=== PATIENT | female | born 1985 | race Caucasian/White ===

== ENCOUNTER 2016-04-06 12:20 | Emergency (ER) | payer OTHER ==
[2016-04-06] MEDS ORDERED: IBUPROFEN 600 MG TABLET PO ONE (12:37)
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
[2016-04-06] MEDS ORDERED: OXYCODONE-ACETAMINOPHEN 5-325 MG TABLET PO ONE (14:19)
[2016-04-06 15:28] VITALS: BP 138/86
== END 2016-04-06 15:31 | disposition home or self-care (01) ==
LOC: ER 12:20
PROC: 0SSDXZZ Reposition Left Knee Joint, External Approach (ICD-10-PCS; principal; 2016-04-06)
DX: S83.005A Unspecified dislocation of left patella, initial encounter (principal); V86.99XA Unspecified occupant of other special all-terrain or other off-road motor vehicle injured in nontraffic accident, initial encounter; Z98.51 Tubal ligation status
CPT/HCPCS: 99283; 73552; 73562; 27560; L1830

== ENCOUNTER 2016-04-06 16:28 | Emergency (ER) | payer OTHER ==
[2016-04-06] MEDS ORDERED: ONDANSETRON 4 MG TAB.RAPDIS PO ONE (17:43)
--- NOTE | 2016-04-06 18:27 | ER Document Report ---
[id number] 4d SYNCOPE Mode of Arrival: Wheelchair Information source: Patient, Relative Notes: 30-year-old female who was just discharged by myself for patellar dislocation presents after syncopal episodes 2. Patient noted that she took aspirin and then had sudden pain and after the pain she felt lightheaded dizzy became pale and passed out. Patient since passing out has no complaints denies any chest pain shortness breath difficult to breathing or any new calf pain or swelling. Patient notes that she passes out from pain multiple times in the past TRAVEL OUTSIDE OF THE [place] IN LAST 30 DAYS: No - HPI Onset: Just prior to arrival Onset/Duration: Sudden Quality of pain: Achy Severity: Mild Pain Level: 1 Associated symptoms: Nausea, Vomiting, Other Exacerbated by: Movement Relieved by: Denies Similar symptoms previously: Yes Recently seen / treated by doctor: Yes - Related Data Allergies/Adverse Reactions: No Known Allergies Allergy (Verified 04/06/16 12:34) Past Medical History - Social History Smoking Status: Never Smoker Cigarette use (# per day): No Chew tobacco use (# tins/day): No Smoking Education Provided: No Family History: Reviewed & Not Pertinent Patient has suicidal ideation: No Patient has homicidal ideation: No Renal/ Medical History: Denies: Hx Peritoneal Dialysis Past Surgical History: Reports: Hx Section - x2, Hx Tubal Ligation - Immunizations Hx Diphtheria, Pertussis, Tetanus Vaccination: Yes Review of Systems - Review of Systems Notes: REVIEW OF SYSTEMS: CONSTITUTIONAL : Denies fever, chills, or sweats. Denies recent illness. EENT: Denies eye, ear, throat, or mouth pain or symptoms. Denies nasal or sinus congestion or discharge. Denies throat, tongue, or mouth swelling or difficulty swallowing. CARDIOVASCULAR: Denies chest pain. Denies palpitations or racing or irregular heart beat. Denies ankle edema. RESPIRATORY: Denies cough, cold, or chest congestion. Denies shortness of breath, difficulty breathing, or wheezing. GASTROINTESTINAL: Denies abdominal pain or distention. Denies nausea, vomiting , or diarrhea. Denies blood in vomitus, stools, or per rectum. Denies black, tarry stools. Denies constipation. GENITOURINARY: Denies difficulty urinating, painful urination, burning, frequency, blood in urine, or discharge. FEMALE GENITOURINARY: Denies vaginal bleeding, heavy or abnormal periods, irregular periods. Denies vaginal discharge or odor. MUSCULOSKELETAL: Left leg pain SKIN: Denies rash, lesions or sores. HEMATOLOGIC : Denies easy bruising or bleeding. LYMPHATIC: Denies swollen, enlarged glands. NEUROLOGICAL: Syncope PSYCHIATRIC: Denies anxiety or stress. Denies depression, suicidal ideation, or homicidal ideation. ALL OTHER SYSTEMS REVIEWED AND NEGATIVE. Dictation was performed using [employer] voice recognition software PHYSICAL EXAMINATION: GENERAL: Well-appearing, well-nourished and in no acute distress. HEAD: Atraumatic, normocephalic. EYES: Pupils equal round and reactive to light, extraocular movements intact, conjunctiva are normal. ENT: Nares patent, oropharynx clear without exudates. Moist mucous membranes. NECK: Normal range of motion, supple without lymphadenopathy LUNGS: Breath sounds clear to auscultation bilaterally and equal. No wheezes rales or rhonchi. HEART: Regular rate and rhythm without murmurs ABDOMEN: Soft, nontender, nondistended abdomen. No guarding, no rebound. No masses appreciated. Female : deferred Musculoskeletal: Left leg in immobilizer and Paul wrap bandage, patellar production noted NEUROLOGICAL: Cranial nerves grossly intact. Normal speech, normal gait. Normal sensory, motor exams PSYCH: Normal mood, normal affect. SKIN: Warm, Dry, normal turgor, no rashes or lesions noted. Physical Exam - Vital signs Vitals: Temp Pulse Resp BP Pulse Ox 98.2 F 78 16 113/76 98 04/06/16 18:28 04/06/16 18:28 04/06/16 18:28 04/06/16 18:28 04/06/16 18:28 Course - Re-evaluation Re-evalutation: 04/06/16 18:24 Patient is stable at this time denies any concerns, I do believe her syncope was secondary to vomiting from pain. I will discharge home at this time, with family's reassurance that she returns immediately if there is any other concerns Family members a physician and will be watching the patient After performing a Medical Screening Examination, I estimate there is LOW risk for ACUTE CORONARY SYNDROME, RESPIRATORY FAILURE, SEPSIS OR MENINGITIS, thus I consider the discharge disposition reasonable. The patient and I have discussed the diagnosis and risks, and we agree with discharging home with close follow- up. We also discussed returning to the Emergency Department immediately if new or worsening symptoms occur. We have discussed the symptoms which are most concerning (e.g., changing or worsening pain, trouble swallowing or breathing, neck stiffness, fever) that necessitate immediate return. 04/06/16 23:42 - Vital Signs Vital signs: Temp Pulse Resp BP Pulse Ox 98.2 F 78 16 113/76 98 04/06/16 18:28 04/06/16 18:28 04/06/16 18:28 04/06/16 18:28 04/06/16 18:28 Discharge - Discharge Clinical Impression: Syncope and collapse Nausea and vomiting Qualifiers: Vomiting type: unspecified Vomiting Intractability: non-intractable Qualified Code(s): R11.2 - Nausea with vomiting, unspecified Patellar dislocation Qualifiers: Encounter type: initial encounter Laterality: left Qualified Code(s): S83.005A - Unspecified dislocation of left patella, initial encounter Condition: Stable Disposition: HOME, SELF-CARE Instructions: Syncopal Episode ([facility]) Prescriptions: Ondansetron HCl [Zofran] 8 mg PO Q8 #30 tablet Oxycodone HCl 5 mg PO Q6 #20 capsule
[2016-04-06 18:29] VITALS: BP 113/76
== END 2016-04-06 19:05 | disposition home or self-care (01) ==
LOC: ER 16:28
DX: S83.005A Unspecified dislocation of left patella, initial encounter (principal); R55 Syncope and collapse; R11.2 Nausea with vomiting, unspecified; V86.99XA Unspecified occupant of other special all-terrain or other off-road motor vehicle injured in nontraffic accident, initial encounter; Z98.51 Tubal ligation status
CPT/HCPCS: 99283

== ENCOUNTER 2016-04-25 10:41 | Day surgery (SDC) | payer OTHER ==
[2016-04-19 10:39] LABS: APPEARANCE,URINE SLIGHTLY-CLOUDY; BILIRUBIN,URINE NEGATIVE (NEGATIVE); GLUCOSE, URINE NEGATIVE (NEGATIVE); KETONES,URINE NEGATIVE (NEGATIVE); LEUKOCYTE ESTERASE,URINE TRACE (NEGATIVE); NITRITE,URINE NEGATIVE (NEGATIVE); PROTEIN,URINE NEGATIVE (NEGATIVE); URINE SPECIFIC GRAVITY 1.021; UROBILINOGEN,URINE NEGATIVE mg/dL (<2.0)
[2016-04-19 10:40] LABS: HEMATOCRIT 41.9 % (36.0-47.0); HEMOGLOBIN 13.8 g/dL (12.0-15.5); HGB HCT DIFFERENCE -0.5; MEAN CORPUSCULAR HGB CONC 32.9 g/dL (32.0-36.0); MEAN CORPUSCULAR VOLUME 79 fl (80-97); RED CELL DISTRIBUTION WIDTH 15.6 % (11.5-14.0); WHITE BLOOD COUNT 7.6 10^3/uL (4.0-10.5)
[2016-04-19 11:06] LABS: ANION GAP 13 (5-19); BLOOD UREA NITROGEN 14 mg/dL (7-20); CALCIUM 9.9 mg/dL (8.4-10.2); CARBON DIOXIDE 26 mmol/L (22-30); CHLORIDE 103 mmol/L (98-107); CREATININE RESULT 0.67 mg/dL (0.52-1.25); GLUCOSE 85 mg/dL (75-110); SODIUM 141.9 mmol/L (137-145)
[~2016-04-25 10:41] MED LIST: CEFAZOLIN 2 GM/D5W RTU 2 GM/50 ML RTUPB IV PRN; DEXAMETHASONE SOD PHOSPHATE INJ 4 MG/1 ML VIAL ONE; KETOROLAC TROMETHAMINE 60 MG/2 ML SDV ONE; LACTATED RINGERS 1000 ML IV PRN; LIDOCAINE 0.5% INJ-PF (5 MG/ML) 50 ML SDV SUBCUT PRN; LIDOCAINE 2% INJ-PF (20 MG/ML) 10 ML AMPUL ONE; METOCLOPRAMIDE HCL INJ/PF 10 MG/2 ML SDV ONE; ONDANSETRON HCL INJ/PF 4 MG/2 ML SDV ONE; SUCCINYLCHOLINE CHLORIDE INJ 200 MG/10 ML VIAL ONE
[2016-04-25] MEDS ORDERED: BUPIVACAINE HCL 0.5 % INJ/PF 30 ML SDV ONE (11:28)
[2016-04-25] MEDS ORDERED: EPINEPHRINE INJ/PF 1 MG/1 ML AMPULE ONE ×2 (11:28→12:23)
[2016-04-25] MEDS ORDERED: HYDROMORPHONE HCL INJ/PF 2 MG/ML AMPULE ONE ×2 (11:37→14:21)
[2016-04-25] MEDS ORDERED: PROPOFOL INJ 200 MG/20 ML VIAL IV ONE (11:37)
[2016-04-25] MEDS ORDERED: ACETAMINOPHEN 100 ML IV ONE (11:37)
[2016-04-25] MEDS ORDERED: MIDAZOLAM 2 MG/2 ML INJ ONE (11:37)
[2016-04-25 11:58] LABS: PROTHROMBIN TIME 12.7 SEC (11.4-15.4)
[2016-04-25] MEDS ORDERED: ONDANSETRON HCL INJ/PF 4 MG/2 ML SDV IV PRN (13:54)
[2016-04-25] MEDS ORDERED: OXYCODONE-ACETAMINOPHEN 5-325 MG TABLET PO PRN ×4 (13:54→16:37)
[2016-04-25] MEDS ORDERED: DIPHENHYDRAMINE HCL 50 MG/ML VIAL IV PRN (13:54)
[2016-04-25] MEDS ORDERED: MEPERIDINE HCL/PF INJ 25 MG/1 ML DISP.SYRIN IV PRN (13:54)
[2016-04-25] MEDS ORDERED: FENTANYL CITRATE INJ/PF 100 MCG/2 ML AMPUL IV PRN ×3 (13:54)
[2016-04-25] MEDS ORDERED: MORPHINE SULFATE 10 MG/ML INJ IV PRN (13:54)
[2016-04-25] MEDS ORDERED: PROMETHAZINE HCL INJ 25 MG/1 ML VIAL IV PRN ×2 (13:54)
[2016-04-25] MEDS ORDERED: FENTANYL CITRATE INJ/PF 100 MCG/2 ML AMPUL ONE (14:21)
[2016-04-25] MEDS ORDERED: DEXMEDETOMIDINE INJ 80 MCG/20 ML VIAL IV ONE (14:54)
--- NOTE | 2016-04-25 16:33 | Brief Operative Note ---
BRIEF OPERATIVE REPORT DATE OF SURGERY: 04/25/16 TIME OF SURGERY: 16:30 PREOPERATIVE DIAGNOSIS: Left patellar dislocation POSTOPERATIVE DIAGNOSIS: Left patellar dislocation with anterior cruciate ligament tear and lateral meniscus tear SURGEON: LONDON PHAM FINDINGS: As above COMPLICATIONS: None ESTIMATED BLOOD LOSS: 25 mL TISSUE REMOVED OR ALTERED: None TECHNICAL PROCEDURE: Left knee arthroscopy with partial lateral meniscectomy and medial patellofemoral ligament reconstruction utilizing gracilis allograft
--- NOTE | 2016-04-25 16:37 | PDOC DISCHARGE SUMMARY ---
Discharge Summary (SDC) - Discharge Final Diagnosis: Status post left knee arthroscopy with partial lateral meniscectomy and medial patellofemoral ligament reconstruction Date of Surgery: 04/25/16 Discharge Date: 04/25/16 Treatment or Instructions: Patient instructed to follow up in 10-14 days. Patient instructed to keep dressing dry clean and intact for 4 days and then allowed to remove. At that point patient can shower and apply Band-Aids as needed. Patient can weight-bear as tolerated and use brace locked at 0 Crutches for support and safety. Patient instructed to call the office if patient develops fevers chills redness and drainage from the surgical sites. Prescriptions: Oxycodone HCl/Acetaminophen [Percocet 5-325 mg Tablet] 1 - 2 tab PO ASDIR PRN # 60 tablet PRN Reason: Discharge Activity: No Driving, Keep Legs Elevated, No Lifting/Push/Pulling, Walk Frequently Adaptive Devices on Discharge: Axillary Crutches Report the Following to Your Physician Immediately: Shortness of Breath, Vomiting, Increase in Pain, Fever over 101 Degrees, Unusual Bleeding, Redness, Swelling, Warmth, Drainage-Yellow, Drainage-Green, Drainage-Foul Smelling
[2016-04-25] MEDS ORDERED: OXYCODONE-ACETAMINOPHEN 5-325 MG TABLET ONE (16:42)
[2016-04-25 17:55] VITALS: BP 123/87
--- NOTE | 2016-06-05 17:27 | Operative Report ---
Operative Report DATE OF SURGERY: 04/25/16 PREOPERATIVE DIAGNOSIS: Left patellar dislocation POSTOPERATIVE DIAGNOSIS: Left patellar dislocation with almost complete rupture of anterior cruciate ligament and small posterior horn lateral meniscus tear OPERATION: Left knee arthroscopy with partial lateral meniscectomy and medial patellofemoral ligament reconstruction utilizing gracilis allograft SURGEON: LONDON PHAM ANESTHESIA: GA TISSUE REMOVED OR ALTERED: None COMPLICATIONS: None ESTIMATED BLOOD LOSS: 25 mL INTRAOPERATIVE FINDINGS: As above PROCEDURE: Patient was brought to the operating room and successfully induced and intubated in a the supine position. Once the tube was secured the right lower extremity thigh tourniquet was applied and the left lower extremity was prepped and draped in a normal surgical fashion. Timeout was done identifying the left knee has a correct site. The extremity was held elevated for a couple minutes and then tourniquet was inflated at 300 mmHg 0.5% of Marcaine was injected into the anticipated portal sites. 11 blade was used to establish the anterolateral portal. Scope was introduced and the capsule was distended with sterile saline solution. Under direct visualization the anteromedial portal sites was established first by applying a spinal needle and then established with the 11 blade. Probe was introduced and a diagnostic scope was done. Looking at the patellofemoral compartment he can see subluxation of the patella. I turned my attention to the medial compartment showing no meniscus tear and pristine medial compartment articular cartilage. I turned my attention to the notch where I noticed that the patient had an high-grade to full anterior cruciate ligament rupture. I placed the leg in [id number] and showed that the lateral compartment also was pristine with no pathology. At this point I used a 4.0 mm shaver and cleaned off the lateral wall and resected the stump of the anterior cruciate ligament tear took pictures showing the anterior cruciate ligament deficient knee. I do not have permission to do an anterior cruciate ligament her and her postoperative care were changed if I did do the anterior cruciate ligament with the medial patellofemoral ligament reconstruction therefore held off on doing anything during this case. Fluid from the knee was removed. I then proceeded to do a longitudinal incision over the medial border of the patella and dissected down to the medial patella. Under C-arm guidance I placed 2 pins into the proximal two thirds of the patella. At this point I proceeded to grab the gracilis allograft and prepared the 2 and with a fiber loop. The graft was then laid in a moist sponge. I then proceeded to use a cannulated drill to drill about a 30 mm tunnel over the 2 pins. I removed one pin and loaded while the end of the gracilis to a swivel lock. This was then secured into the most proximal hole and not successfully screwed in without difficulty. The second hole also was then loaded with the gracilis and swivel lock. More spine was placed over the gracilis and then a second incision was done right over the medial epicondyle using the radiopaque guide I was able then to iain and pain the origin of the medial patellofemoral ligament. I then proceeded to drill successfully into the femur. I made sure was passed the notch and deep enough. C-arm guidance was used. I was able to tunnel the gracilis then subcutaneously and pulled it out through the medial incision. The FiberWire was then used to pull the looped portion of the graft into the femur. Nitinol wire was placed and then a bicomposite tenodesis screw was used to secure the graft into the femoral tunnel. 45 position to make sure that the patella was tracking in the midline and had minimal lateral translation. Range of motion of the knee show the patient had full range of motion with no subluxation or dislocation. Did not feel like the patella was too tight either. At this point I proceeded to close the wounds deep with 0 Vicryl 2-0 Vicryl for the dermis and then 3-0 nylon for the skin. This was repeated with the medial incision over the medial aspect of the patella. Xeroform 4 x 4 dressing was applied. Process were closed with 3-0 nylon and also covered with Xeroform 4 x 4 dressing. The leg was wrapped with soft roll and overwrapped with an Paul bandage. Tourniquet was let down. Drapes were removed and the patient was placed in a hinge knee brace locked at 0-30. Patient was successfully extubated and sent to PACU in stable condition.
== END 2016-04-25 17:35 | disposition home or self-care (01) ==
LOC: OROUT 10:41
PROVIDERS: ATTEND Orthopaedic Surgery
PROC: 0MUP4JZ Supplement Left Knee Bursa and Ligament with Synthetic Substitute, Percutaneous Endoscopic Approach (ICD-10-PCS; 2016-04-25)
PROC: 0SBD4ZZ Excision of Left Knee Joint, Percutaneous Endoscopic Approach (ICD-10-PCS; principal; 2016-04-25 13:00)
DX: S83.015D Lateral dislocation of left patella, subsequent encounter (principal); V87.8XXD Person injured in other specified noncollision transport accidents involving motor vehicle (traffic), subsequent encounter
CPT/HCPCS: 36415 ×2; 85027; 85610; 85730; 81025; 80048; 81001; 73562; 29881; 29888; J2250; J1100; J0171; J1885; J3010; J2765; J1170; J0330; J2405; J2704; J3490 ×2; J0690; J0131; 01400

== ENCOUNTER 2016-06-06 11:18 | Day surgery (SDC) | payer OTHER ==
[2016-05-30 10:30] LABS: ABSOLUTE BASOPHILS # (AUTO) 0.1 10^3/uL (0.0-0.2); ABSOLUTE EOSINOPHILS # (AUTO) 0.1 10^3/uL (0.0-0.6); ABSOLUTE LYMPHOCYTES (AUTO) 2.5 10^3/uL (0.5-4.7); ABSOLUTE MONOCYTES (AUTO) 0.4 10^3/uL (0.1-1.4); EOSINOPHILS % (AUTO) 1.8 % (0-6); HEMATOCRIT 46.6 % (36.0-47.0); HEMOGLOBIN 15.4 g/dL (12.0-15.5); HGB HCT DIFFERENCE -0.4; LYMPHOCYTES % (AUTO) 30.3 % (13-45); MEAN CORPUSCULAR HEMOGLOBIN 26.4 pg (27.0-33.4); MEAN CORPUSCULAR VOLUME 80 fl (80-97); MONOCYTES % (AUTO) 5.1 % (3-13); RED BLOOD COUNT 5.82 10^6/uL (3.72-5.28); RED CELL DISTRIBUTION WIDTH 15.4 % (11.5-14.0); SEGMENTED NEUTROPHILS % (AUTO) 61.8 % (42-78); WHITE BLOOD COUNT 8.1 10^3/uL (4.0-10.5)
[2016-05-30 10:31] LABS: APPEARANCE,URINE SLIGHTLY-CLOUDY; BILIRUBIN,URINE NEGATIVE (NEGATIVE); GLUCOSE, URINE NEGATIVE (NEGATIVE); KETONES,URINE 80 mg/dL (NEGATIVE); LEUKOCYTE ESTERASE,URINE NEGATIVE (NEGATIVE); NITRITE,URINE NEGATIVE (NEGATIVE); PROTEIN,URINE NEGATIVE (NEGATIVE); URINE SPECIFIC GRAVITY 1.006; UROBILINOGEN,URINE NEGATIVE mg/dL (<2.0)
[2016-05-30 10:50] LABS: BLOOD UREA NITROGEN 11 mg/dL (7-20); CALCIUM 10.3 mg/dL (8.4-10.2); CARBON DIOXIDE 14 mmol/L (22-30); CHLORIDE 108 mmol/L (98-107); CREATININE RESULT 0.67 mg/dL (0.52-1.25); GLUCOSE 76 mg/dL (75-110); POTASSIUM 3.8 mmol/L (3.6-5.0)
[2016-05-30 10:56] LABS: ANION GAP 25 (5-19)
--- NOTE | 2016-05-30 19:48 | EKG REPORT ---
SEVERITY:- ABNORMAL ECG - SINUS RHYTHM VENTRICULAR PREMATURE COMPLEX : Confirmed by: Chester Rush MD 30-May-2016 19:47:34
[~2016-06-06 11:18] MED LIST changes: -DEXAMETHASONE SOD PHOSPHATE INJ 4 MG/1 ML VIAL ONE; -KETOROLAC TROMETHAMINE 60 MG/2 ML SDV ONE; -LIDOCAINE 2% INJ-PF (20 MG/ML) 10 ML AMPUL ONE; -METOCLOPRAMIDE HCL INJ/PF 10 MG/2 ML SDV ONE; -ONDANSETRON HCL INJ/PF 4 MG/2 ML SDV ONE; -SUCCINYLCHOLINE CHLORIDE INJ 200 MG/10 ML VIAL ONE
[2016-06-06] MEDS ORDERED: BUPIVACAINE HCL 0.5 % INJ/PF 30 ML SDV ONE (13:27)
[2016-06-06] MEDS ORDERED: EPINEPHRINE INJ/PF 1 MG/1 ML AMPULE ONE ×2 (13:27→18:37)
[2016-06-06] MEDS ORDERED: GLYCOPYRROLATE INJ 0.4 MG/2 ML VIAL ONE (14:14)
[2016-06-06] MEDS ORDERED: NEOSTIGMINE METHYLSULFATE 10 MG/10 ML VIAL ONE (14:14)
[2016-06-06] MEDS ORDERED: ROCURONIUM BROMIDE INJ 50 MG/5 ML VIAL IV ONE (14:14)
[2016-06-06] MEDS ORDERED: KETOROLAC TROMETHAMINE 60 MG/2 ML SDV ONE (16:50)
[2016-06-06] MEDS ORDERED: ONDANSETRON HCL INJ/PF 4 MG/2 ML SDV ONE (16:50)
[2016-06-06] MEDS ORDERED: MIDAZOLAM 2 MG/2 ML INJ ONE (16:50)
[2016-06-06] MEDS ORDERED: HYDROMORPHONE HCL INJ/PF 2 MG/ML AMPULE ONE ×2 (16:50→18:59)
[2016-06-06] MEDS ORDERED: FENTANYL CITRATE INJ/PF 250 MCG/5 ML AMPULE ONE (16:50)
[2016-06-06] MEDS ORDERED: PROPOFOL INJ 200 MG/20 ML VIAL IV ONE (16:51)
[2016-06-06] MEDS ORDERED: ACETAMINOPHEN 100 ML IV ONE (16:51)
[2016-06-06] MEDS ORDERED: PROMETHAZINE HCL INJ 25 MG/1 ML VIAL IV PRN (17:55)
[2016-06-06] MEDS ORDERED: DIPHENHYDRAMINE HCL 50 MG/ML VIAL IV PRN (17:55)
[2016-06-06] MEDS ORDERED: FENTANYL CITRATE INJ/PF 100 MCG/2 ML AMPUL IV PRN ×3 (17:55)
[2016-06-06] MEDS ORDERED: MEPERIDINE HCL/PF INJ 25 MG/1 ML DISP.SYRIN IV PRN (17:55)
[2016-06-06] MEDS ORDERED: MORPHINE SULFATE 10 MG/ML INJ IV PRN (17:55)
--- NOTE | 2016-06-06 19:35 | Operative Report ---
Operative Report DATE OF SURGERY: 06/06/16 PREOPERATIVE DIAGNOSIS: Left anterior cruciate ligament tear POSTOPERATIVE DIAGNOSIS: Same OPERATION: Left knee arthroscopy with anterior cruciate ligament reconstruction utilizing Achilles allograft SURGEON: LONDON PHAM ANESTHESIA: GA TISSUE REMOVED OR ALTERED: None COMPLICATIONS: None ESTIMATED BLOOD LOSS: 15 mL INTRAOPERATIVE FINDINGS: As above PROCEDURE: Patient was brought to the operating room and successfully induced and intubated in a the supine position. Once the tube was secured a thigh tourniquet was applied to the left lower extremity was prepped and draped in a normal surgical fashion. Timeout was done identifying the left knee has a correct site. The extremity was exsanguinated with an Esmarch and then the tourniquet was inflated at 300 mmHg 0.25% of Marcaine was injected into the anticipated portal sites. Patient who had recently had a MPFL reconstruction developed slight arthrofibrosis and required mild manipulation. She had 0 of extension to about 90 of flexion. After manipulating and releasing scar tissue I was able to do full flexion. At this point turned my attention to the surgery and used 11 blade was used to establish the anterolateral portal. Scope was introduced and the capsule was distended with sterile saline solution. Under direct visualization the anteromedial portal sites was established first by applying a spinal needle and then established with the 11 blade. Probe was introduced and a diagnostic scope was done. Patient had obvious bleeding from the release of scar tissue and therefore I irrigated the nieces significantly and used a 4.0 mm shaver through my anteromedial portal. Undersurface of patella and took a looked intact. The gracilis allograft was not visible. Medial compartment was pristine and the lateral compartment were pristine. I looked at the notch where showed the empty wall sign and remnant of the anterior cruciate ligament stump. At this point I used the combination of 5.5 mm shaver and 50 radiofrequency ablator to do my debridement of the torn anterior cruciate ligament and expose the lateral wall. I used a chondral pick to iain where I would like to place my femoral tunnel. This was confirmed with the medial [id number] guide. I flexed the knee as much as possible and use my spade tip guidepin and drilled through. I was able to measure about a 30 mm tunnel before I pierced the cortex and passed the pin through the lateral aspect of the thigh. I used the 10 mm low-profile reamer then to do my femoral tunnel and stopped at 25 mm in depth. I used a shaver then to clean out the bony debris. I visualized the tunnel with a camera and make sure had a back wall and did not pierced the lateral cortex. At this point I fed a FiberWire through the eyelet and passed it through the lateral aspect of the thigh. This FiberWire were then later on the shuttle through the tibial tunnel to shuttle the graft. In the meantime it was clamped outside the skin. At this point I grabbed my retro-cutter guide which was marked at [address] on the anterior cruciate ligament footprint on the tibial side. This had been cleaned off with a shaver and bur to Fregosi ablator as well. I used the scope anterior horn of the lateral meniscus as a guide as well as 7 mm anterior to the PCL. Once I was happy with the placement I did a medial incision and measured the tibial tunnel to be 35 mm in length. Once again I use the shaver to clean out the debris in the knee. The Achilles was preparing the back table and the made sure that I was able to pass through it 10 mm tunnel with the bone plug side and the tendinous portion. The graft had been placed in a moist sponge and ready for insertion once the tunnels were completed. I used a probe to grabbed the have the portion of the FiberWire suture that was left in the femoral tunnel and passed it through the tibial tunnel. At this point we shuttled the Achilles tendon allograft through the tibial tunnel into the femoral tunnel successfully using the bone plug to fit nicely in the femoral tunnel. I proceeded to notch the tunnel and placed a nitinol wire. I placed a 7 x 23mm bicomposite screw securing the bone plug in the femoral tunnel. I then turned my attention to the tibial tunnel where I notched it and then placed a nitinol wire for placement of the screw. While holding the leg in a reverse Sanjeev position by my advertising assistant I pulled tension on the tibial side of the graft and placed my interference screw securing the graft. Sanjeev was used to showing good endpoint and minimal translation. Scope was introduced and I used a probe to check the tension on the anterior cruciate ligament graft. I was satisfied with the tension so at this point fluid was removed from the knee and the instruments were removed. I proceeded to close my 2 portal sites with 3-0 nylon and the tibial incision with 0 Vicryl to Vicryl and 2-0 nylon. Xeroform, 4 x 4, AVD pad, Sof-Rol was applied and then overwrapped with an Paul bandage. Tourniquet was let down and the drapes were removed. Patient was extubated and sent to PACU in stable condition.
[2016-06-06] MEDS ORDERED: OXYCODONE HCL IR 5 MG TABLET PO PRN (19:37)
--- NOTE | 2016-06-06 19:37 | PDOC DISCHARGE SUMMARY ---
Discharge Summary (SDC) - Discharge Final Diagnosis: Status post anterior cruciate ligament reconstruction left knee Date of Surgery: 06/06/16 Discharge Date: 06/06/16 Condition: Good Treatment or Instructions: Patient instructed to follow up in 10-14 days. Patient instructed to keep dressing dry clean and intact for 4 days and then allowed to remove. At that point patient can shower and apply Band-Aids as needed. Patient can weight-bear as tolerated and do range of motion exercises as tolerated. Crutches for support and safety. Can wean crutches once stable on his feet. Patient instructed to call the office if patient develops fevers chills redness and drainage from the surgical sites. Respiratory Treatments at Home: Deep Breathing/Coughing Discharge Activity: Activity As Tolerated, No Lifting/Push/Pulling Report the Following to Your Physician Immediately: Shortness of Breath, Vomiting, Increase in Pain, Fever over 101 Degrees, Unusual Bleeding, Redness, Swelling, Warmth, Increased Soreness, Drainage-Yellow, Drainage-Green, Drainage- Foul Smelling, Numbness
[2016-06-06 22:20] VITALS: BP 128/81
== END 2016-06-06 22:15 | disposition home or self-care (01) ==
LOC: OROUT 11:18 → 4N 20:06 → OROUT 22:15
PROVIDERS: ATTEND Orthopaedic Surgery
PROC: 0MUP47Z Supplement Left Knee Bursa and Ligament with Autologous Tissue Substitute, Percutaneous Endoscopic Approach (ICD-10-PCS; principal; 2016-06-06 13:30)
DX: S83.512D Sprain of anterior cruciate ligament of left knee, subsequent encounter (principal); X58.XXXD Exposure to other specified factors, subsequent encounter; M25.562 Pain in left knee
CPT/HCPCS: 93005; 36415; 85025; 81025; 80048; 81001; 71020; 93010; 29888; C1713; J2250; J3490; J0171; J1885; J3010; J1170; J2405; J2704; J0690; J0131; 1400